=== PATIENT | female | born 1965 | race Two or more races ===

== ENCOUNTER 2023-01-27 01:21 | Inpatient (IN) | payer OTHER, MEDICAID ==
[2023-01-27] VITALS (26 sets, daily range): BP systolic 104–148; BP diastolic 57–99; PULSE 91–117; RESP 18–20; TEMP 97.8; O2SAT 94–100
[~2023-01-27] VITALS: Ht 175.3 cm; Wt 180.5 kg
[2023-01-27] MEDS ORDERED: LORazepam 2MG/ML-1ML VIAL ONE ×2 (01:29→01:59)
[2023-01-27] MEDS ORDERED: LORazepam 2MG/ML-1ML VIAL IV ONE ×3 (01:45→13:45)
[2023-01-27 02:05] LABS: Basophils # (auto) 0 10 ^3/uL (0-0.2); Eosinophils # (auto) 0.2 10 ^3/uL (0-0.8); Eosinophils % (auto) 3.3 % (0.0-7.0); Hematocrit 41.4 % (36.0-46.0); Hemoglobin 13.5 g/dL (12.2-16.2); Lymphocytes # (auto) 2.1 10 ^3/uL (0.4-5.4); Lymphocytes % (auto) 44.1 % (10.0-50.0); Mean Corpuscular Hemoglobin 31.7 pg (28.0-32.0); Mean Corpuscular Hgb Conc. 32.7 g/dL (32.0-36.0); Mean Corpuscular Volume 96.8 fL (80.0-100.0); Monocytes # (auto) 0.4 10 ^3/uL (0-1.3); Monocytes % (auto) 7.8 % (0.0-12.0); Neutrophils # (auto) 2.1 10 ^3/uL (1.6-8.6); Neutrophils % (auto) 43.8 % (37.0-80.0); Red Blood Cells 4.28 10^6/uL (4.0-5.20); Red Cell Distribution Width 14.7 % (11.8-14.3); White Blood Cell 4.8 10^3/uL (4.4-10.8)
[2023-01-27] MEDS ORDERED: SODIUM CHLORIDE 0.9% 1,000 ML IVB ONE (03:00)
[2023-01-27] MEDS ORDERED: levETIRAcetam 1000 mg/100ml 100 ML IV ONE (03:00)
[2023-01-27 03:08] LABS: Chloride 106 mmol/L (98-107); Sodium 138 mmol/L (136-145)
[2023-01-27 03:10] LABS: Potassium 4.2 mmol/L (3.5-5.1)
[2023-01-27 03:11] LABS: Anion Gap 5 (5-15); Calcium 9.1 mg/dL (8.5-10.1); Carbon Dioxide 27 mmol/L (20-30)
[2023-01-27 03:16] LABS: Glucose 103 mg/dL (74-106)
[2023-01-27 03:17] LABS: Alkaline Phosphatase 100 U/L (46-116)
[2023-01-27 03:18] LABS: Albumin 4.1 g/dL (3.2-4.8); Aspartate Aminotransferase 17 U/L (13-40); Bilirubin, Total 0.3 mg/dL (0.2-1.0); Total Protein 6.9 g/dL (5.7-8.2)
[2023-01-27 04:38] LABS: Blood Alcohol 3.8 mg/dL (<10); Magnesium 1.8 mg/dL (1.6-2.6)
[2023-01-27 04:41] LABS: INR 1.04 (0.9-1.15); Partial Thromboplastin Time 28.6 SEC (24.5-34.5); Prothrombin Time 10.9 sec (9.3-11.8)
[2023-01-27 04:59] LABS: Alanine Aminotransferase 19 U/L (7-40); BUN/Creatinine Ratio 17.7 (10.0-20.0); Blood Urea Nitrogen 14 mg/dL (9-23)
[2023-01-27] MEDS ORDERED: NITROGLYCERIN 0.4 MG SL TAB SL PRN (06:45)
[2023-01-27] MEDS ORDERED: LORazepam 2MG/ML-1ML VIAL IM PRN (06:45)
[2023-01-27 08:23] LABS: Urine Bacteria FEW /hpf (None Seen); Urine Blood Negative /uL (Negative); Urine Clarity HAZY (Clear); Urine Color Yellow (Yellow); Urine Mucus FEW (None Seen); Urine Protein, UAD TRACE (Negative); Urine Specific Gravity 1.027 (1.001-1.035); Urine Urobilinogen Normal (Negative); Urine WBC 3 /hpf (0 - 5)
[2023-01-27 09:23] LABS: Amphetamine Screen, Urine Neg (NEGATIVE); Barbiturate Scree,Urine Neg (NEGATIVE); Benzodiazephine Screen, Urine Pos (NEGATIVE); Cannabinoid Screen, Urine Neg (NEGATIVE); Cocaine Screen, Urine Neg (NEGATIVE); Opiate Scree,Urine Neg (NEGATIVE); Phencyclidine Screen, Urine Neg (NEGATIVE)
[2023-01-27] MEDS ORDERED: levETIRAcetam 500 MG TAB PO SCH (10:00)
[2023-01-27] MEDS ORDERED: ACETAMINOPHEN 325 MG TAB PO PRN (13:30)
[2023-01-27] MEDS ORDERED: hydrALAZINE HCL 20 MG/ML VL IV PRN (13:30)
[2023-01-27] MEDS ORDERED: LORazepam 2MG/ML-1ML VIAL IV PRN ×2 (13:46→14:30)
[2023-01-27] MEDS ORDERED: LISINOPRIL 20 MG TAB PO ONE (14:00)
[2023-01-27] MEDS: hydrALAZINE HCL 20 MG/ML VL IV PRN (14:21)
[2023-01-27] MEDS ORDERED: LORazepam 2MG/ML-1ML VIAL IV STA (14:38)
[2023-01-27] MEDS ORDERED: levETIRAcetam 1000 mg/100ml 100 ML IV SCH ×2 (14:45→15:15)
[2023-01-27] MEDS ORDERED: PROPOFOL 100 ML IV ONE (14:55)
[2023-01-27] MEDS ORDERED: MIDAZOLAM DRIP 50 mg/50mL 50 ML IV ONE (14:58)
[2023-01-27] MEDS ORDERED: SUCCINYLCHOLINE CHLORIDE 20 MG/ML 10ML VIAL IV ONE ×2 (14:59→15:00)
[2023-01-27] MEDS ORDERED: MIDAZOLAM HCL 5 MG/ML-1ML VIAL ONE (15:00)
[2023-01-27] MEDS ORDERED: MIDAZOLAM HCL 5 MG/ML-1ML VIAL IV ONE ×2 (15:00)
[2023-01-27] MEDS: MIDAZOLAM DRIP 50 mg/50mL 50 ML IV SCH ×2 (15:08→21:04)
[2023-01-27] MEDS: PROPOFOL 100 ML IV SCH ×3 (15:08→23:10)
[2023-01-27] MEDS ORDERED: levETIRAcetam 500 MG/5ML INJ IV ONE ×2 (15:22→22:23)
[2023-01-27] MEDS ORDERED: PHENYTOIN IV DILANTIN 1,000 MG in SODIUM CHL 0.9% 250 ML IV ONE (15:45)
[2023-01-27] MEDS: fentaNYL Drip 2500mCg/250mlNS 250 ML IV SCH (16:00)
[2023-01-27 18:12] LABS: Basophils # (auto) 0 10 ^3/uL (0-0.2); Basophils % (auto) 0.5 % (0.0-2.0); Eosinophils # (auto) 0.1 10 ^3/uL (0-0.8); Eosinophils % (auto) 1.3 % (0.0-7.0); Hematocrit 44.1 % (36.0-46.0); Hemoglobin 14.4 g/dL (12.2-16.2); Lymphocytes # (auto) 1.3 10 ^3/uL (0.4-5.4); Lymphocytes % (auto) 19.5 % (10.0-50.0); Mean Corpuscular Hemoglobin 31.8 pg (28.0-32.0); Mean Corpuscular Hgb Conc. 32.6 g/dL (32.0-36.0); Mean Corpuscular Volume 97.4 fL (80.0-100.0); Monocytes # (auto) 0.4 10 ^3/uL (0-1.3); Monocytes % (auto) 6.1 % (0.0-12.0); Neutrophils # (auto) 4.7 10 ^3/uL (1.6-8.6); Neutrophils % (auto) 72.6 % (37.0-80.0); Nucleated Red Blood Cells % 0.1 %; Red Blood Cells 4.53 10^6/uL (4.0-5.20); Red Cell Distribution Width 14.8 % (11.8-14.3); White Blood Cell 6.4 10^3/uL (4.4-10.8)
[2023-01-27 18:30] LABS: Alanine Aminotransferase 20 U/L (7-40); Albumin 4.2 g/dL (3.2-4.8); Alkaline Phosphatase 118 U/L (46-116); Anion Gap 8 (5-15); Aspartate Aminotransferase 23 U/L (13-40); BUN/Creatinine Ratio 9.5 (10.0-20.0); Bilirubin, Total 0.5 mg/dL (0.2-1.0); Blood Urea Nitrogen 7 mg/dL (9-23); Calcium 8.8 mg/dL (8.7-10.4); Carbon Dioxide 25 mmol/L (20-30); Chloride 107 mmol/L (98-107); Glucose 100 mg/dL (74-106); Potassium 4.3 mmol/L (3.5-5.1); Sodium 140 mmol/L (136-145); Total Protein 7.2 g/dL (5.7-8.2)
[2023-01-27 18:43] LABS: Base Excess -1.3 mmol/L (-2.0-2.0)
[2023-01-27] MEDS: cefTRIAXone 1GM/50ML D5W 50 ML IV SCH (21:21)
[2023-01-27] MEDS: levETIRAcetam 1500 mg/100ml 100 ML IV SCH (22:29)
[2023-01-28] VITALS (106 sets, daily range): BP systolic 81–130; BP diastolic 45–81; PULSE 73–108; RESP 14–21; TEMP 95.5–98.8; O2SAT 92–100
[2023-01-28] MEDS: MIDAZOLAM DRIP 50 mg/50mL 50 ML IV SCH ×3 (00:24→16:48)
[2023-01-28] MEDS: PROPOFOL 100 ML IV SCH ×6 (01:01→16:48)
[2023-01-28 02:27] LABS: Basophils # (auto) 0 10 ^3/uL (0-0.2); Basophils % (auto) 0.7 % (0.0-2.0); Eosinophils # (auto) 0.1 10 ^3/uL (0-0.8); Eosinophils % (auto) 2.8 % (0.0-7.0); Hematocrit 37.8 % (36.0-46.0); Hemoglobin 12.4 g/dL (12.2-16.2); Lymphocytes # (auto) 1.7 10 ^3/uL (0.4-5.4); Mean Corpuscular Hemoglobin 31.7 pg (28.0-32.0); Mean Corpuscular Hgb Conc. 32.8 g/dL (32.0-36.0); Mean Corpuscular Volume 96.6 fL (80.0-100.0); Monocytes # (auto) 0.3 10 ^3/uL (0-1.3); Monocytes % (auto) 6.6 % (0.0-12.0); Neutrophils # (auto) 2.5 10 ^3/uL (1.6-8.6); Neutrophils % (auto) 52.9 % (37.0-80.0); Nucleated Red Blood Cells % 0.1 %; Red Blood Cells 3.91 10^6/uL (4.0-5.20); Red Cell Distribution Width 14.6 % (11.8-14.3); White Blood Cell 4.7 10^3/uL (4.4-10.8)
[2023-01-28 02:38] LABS: Alanine Aminotransferase 18 U/L (7-40); Albumin 3.4 g/dL (3.2-4.8); Alkaline Phosphatase 95 U/L (46-116); Anion Gap 6 (5-15); Aspartate Aminotransferase 28 U/L (13-40); BUN/Creatinine Ratio 12.5 (10.0-20.0); Blood Urea Nitrogen 9 mg/dL (9-23); Calcium 8.3 mg/dL (8.7-10.4); Carbon Dioxide 26 mmol/L (20-30); Chloride 109 mmol/L (98-107); Glucose 92 mg/dL (74-106); Potassium 3.8 mmol/L (3.5-5.1); Sodium 141 mmol/L (136-145)
[2023-01-28 02:39] LABS: Bilirubin, Total 0.4 mg/dL (0.2-1.0); Total Protein 5.8 g/dL (5.7-8.2)
[2023-01-28] MEDS: NOREPINEPHRINE 8 MG/250ML KIT 250 ML IV SCH ×2 (03:20→16:48)
[2023-01-28] MEDS: cefTRIAXone 1GM/50ML D5W 50 ML IV SCH (08:26)
[2023-01-28] MEDS: levETIRAcetam 1500 mg/100ml 100 ML IV SCH ×2 (09:00→21:07)
[2023-01-28] MEDS ORDERED: LISINOPRIL 20 MG TAB PO SCH ×2 (10:00)
[2023-01-28] MEDS ORDERED: OPTISON 3ml Vial for INJ IV ONE (10:45)
[2023-01-28] MEDS ORDERED: PHENYTOIN IV DILANTIN 1,000 MG in SODIUM CHL 0.9% 250 ML IV ONE (13:00)
[2023-01-28] MEDS: fentaNYL Drip 2500mCg/250mlNS 250 ML IV SCH (13:53)
[2023-01-28] MEDS ORDERED: PIPERACILLIN-TAZOB 3.375GM 100 ML IV SCH (18:00)
[2023-01-28] MEDS ORDERED: METH-1182 PO (18:39)
[2023-01-28] MEDS ORDERED: PANT40TA2 PO (18:39)
[2023-01-28] MEDS ORDERED: CYCL-838 PO (18:39)
[2023-01-28] MEDS ORDERED: GABA-339 PO (18:39)
[2023-01-28] MEDS ORDERED: LISI40TA16 PO (18:39)
[2023-01-28] MEDS ORDERED: KEP500T PO (18:39)
[2023-01-28] MEDS ORDERED: TIZA4CAP PO (18:39)
[2023-01-29] VITALS (107 sets, daily range): BP systolic 76–170; BP diastolic 43–124; PULSE 74–124; RESP 17–21; TEMP 97.9–100.2; O2SAT 92–100
[2023-01-29 02:41] LABS: Alanine Aminotransferase 31 U/L (7-40); Albumin 3.3 g/dL (3.2-4.8); Alkaline Phosphatase 93 U/L (46-116); Anion Gap 6 (5-15); Aspartate Aminotransferase 101 U/L (13-40); Blood Urea Nitrogen 7 mg/dL (9-23); Calcium 8.3 mg/dL (8.7-10.4); Carbon Dioxide 25 mmol/L (20-30); Chloride 111 mmol/L (98-107); Glucose 103 mg/dL (74-106); Potassium 3.7 mmol/L (3.5-5.1); Sodium 142 mmol/L (136-145)
[2023-01-29 02:42] LABS: Bilirubin, Total 0.4 mg/dL (0.2-1.0); Total Protein 5.8 g/dL (5.7-8.2)
[2023-01-29 02:46] LABS: Basophils # (auto) 0 10 ^3/uL (0-0.2); Basophils % (auto) 0.9 % (0.0-2.0); Eosinophils # (auto) 0.1 10 ^3/uL (0-0.8); Eosinophils % (auto) 3.4 % (0.0-7.0); Hemoglobin 12.6 g/dL (12.2-16.2); Lymphocytes # (auto) 1.3 10 ^3/uL (0.4-5.4); Lymphocytes % (auto) 29.9 % (10.0-50.0); Mean Corpuscular Hemoglobin 31.8 pg (28.0-32.0); Mean Corpuscular Volume 96.2 fL (80.0-100.0); Monocytes # (auto) 0.5 10 ^3/uL (0-1.3); Monocytes % (auto) 10.8 % (0.0-12.0); Neutrophils # (auto) 2.4 10 ^3/uL (1.6-8.6); Nucleated Red Blood Cells % 0.2 %; Red Blood Cells 3.95 10^6/uL (4.0-5.20); Red Cell Distribution Width 14.7 % (11.8-14.3); White Blood Cell 4.4 10^3/uL (4.4-10.8)
[2023-01-29 08:06] LABS: Base Excess -3.4 mmol/L (-2.0-2.0)
[2023-01-29] MEDS: cefTRIAXone 1GM/50ML D5W 50 ML IV SCH (08:17)
[2023-01-29] MEDS: NOREPINEPHRINE 8 MG/250ML KIT 250 ML IV SCH (09:23)
[2023-01-29] MEDS: levETIRAcetam 1500 mg/100ml 100 ML IV SCH ×2 (09:24→21:12)
[2023-01-29] MEDS: PHENYTOIN SODIUM 50 MG/ML 2ML VIAL IV SCH ×3 (10:15→21:12)
[2023-01-29] MEDS: MIDAZOLAM DRIP 50 mg/50mL 50 ML IV SCH ×2 (11:05→16:28)
[2023-01-29] MEDS: ENOXAPARIN SOD 40 MG/0.4 ML SYRINGE SC SCH (11:49)
[2023-01-29] MEDS: fentaNYL Drip 2500mCg/250mlNS 250 ML IV SCH (16:00)
[2023-01-29] MEDS: PROPOFOL 100 ML IV SCH ×2 (16:28→17:54)
[2023-01-30] VITALS (106 sets, daily range): BP systolic 89–155; BP diastolic 46–90; PULSE 71–109; RESP 14–18; TEMP 97.7–100.6; O2SAT 93–100
[2023-01-30 02:22] LABS: Basophils # (auto) 0 10 ^3/uL (0-0.2); Basophils % (auto) 0.4 % (0.0-2.0); Eosinophils # (auto) 0.2 10 ^3/uL (0-0.8); Eosinophils % (auto) 2.9 % (0.0-7.0); Hematocrit 37.3 % (36.0-46.0); Hemoglobin 12.3 g/dL (12.2-16.2); Lymphocytes # (auto) 1.4 10 ^3/uL (0.4-5.4); Lymphocytes % (auto) 25.2 % (10.0-50.0); Mean Corpuscular Hemoglobin 31.4 pg (28.0-32.0); Mean Corpuscular Volume 95.1 fL (80.0-100.0); Monocytes # (auto) 0.5 10 ^3/uL (0-1.3); Monocytes % (auto) 9.1 % (0.0-12.0); Neutrophils # (auto) 3.6 10 ^3/uL (1.6-8.6); Neutrophils % (auto) 62.4 % (37.0-80.0); Red Blood Cells 3.92 10^6/uL (4.0-5.20); Red Cell Distribution Width 14.8 % (11.8-14.3); White Blood Cell 5.7 10^3/uL (4.4-10.8)
[2023-01-30 02:41] LABS: Alanine Aminotransferase 25 U/L (7-40); Albumin 3.2 g/dL (3.2-4.8); Alkaline Phosphatase 87 U/L (46-116); Anion Gap 6 (5-15); Aspartate Aminotransferase 71 U/L (13-40); BUN/Creatinine Ratio 10.3 (10.0-20.0); Bilirubin, Total 0.4 mg/dL (0.2-1.0); Blood Urea Nitrogen 7 mg/dL (9-23); Calcium 8.1 mg/dL (8.7-10.4); Carbon Dioxide 25 mmol/L (20-30); Chloride 111 mmol/L (98-107); Glucose 89 mg/dL (74-106); Potassium 3.8 mmol/L (3.5-5.1); Sodium 142 mmol/L (136-145); Total Protein 5.6 g/dL (5.7-8.2)
[2023-01-30] MEDS: PHENYTOIN SODIUM 50 MG/ML 2ML VIAL IV SCH ×3 (06:00→21:13)
[2023-01-30 06:45] LABS: Base Excess -2.1 mmol/L (-2.0-2.0)
[2023-01-30] MEDS: cefTRIAXone 1GM/50ML D5W 50 ML IV SCH (08:33)
[2023-01-30] MEDS: MIDAZOLAM DRIP 50 mg/50mL 50 ML IV SCH (08:33)
[2023-01-30] MEDS: levETIRAcetam 1500 mg/100ml 100 ML IV SCH ×2 (09:16→09:18)
[2023-01-30] MEDS: ENOXAPARIN SOD 40 MG/0.4 ML SYRINGE SC SCH ×2 (09:16→09:18)
[2023-01-30] MEDS: fentaNYL Drip 2500mCg/250mlNS 250 ML IV SCH (16:00)
[2023-01-30] MEDS ORDERED: Jevity 1.2 Cal/Fiber 1 Liter GT SCH (16:15)
[2023-01-30] MEDS: PROPOFOL 100 ML IV SCH (22:14)
[2023-01-31] VITALS (106 sets, daily range): BP systolic 87–158; BP diastolic 47–98; PULSE 63–106; RESP 11–31; TEMP 98.1–100.4; O2SAT 92–100
[2023-01-31 02:00] LABS: Basophils # (auto) 0 10 ^3/uL (0-0.2); Basophils % (auto) 0.3 % (0.0-2.0); Eosinophils # (auto) 0.1 10 ^3/uL (0-0.8); Eosinophils % (auto) 2.4 % (0.0-7.0); Hematocrit 38.3 % (36.0-46.0); Hemoglobin 12.6 g/dL (12.2-16.2); Lymphocytes # (auto) 1.3 10 ^3/uL (0.4-5.4); Lymphocytes % (auto) 20.7 % (10.0-50.0); Mean Corpuscular Hemoglobin 31.8 pg (28.0-32.0); Mean Corpuscular Hgb Conc. 32.9 g/dL (32.0-36.0); Mean Corpuscular Volume 96.6 fL (80.0-100.0); Monocytes # (auto) 0.6 10 ^3/uL (0-1.3); Neutrophils # (auto) 4.2 10 ^3/uL (1.6-8.6); Neutrophils % (auto) 67.6 % (37.0-80.0); Red Blood Cells 3.97 10^6/uL (4.0-5.20); Red Cell Distribution Width 14.8 % (11.8-14.3); White Blood Cell 6.2 10^3/uL (4.4-10.8)
[2023-01-31] MEDS: NOREPINEPHRINE 8 MG/250ML KIT 250 ML IV SCH (02:08)
[2023-01-31 02:20] LABS: Alanine Aminotransferase 24 U/L (7-40); Albumin 3.3 g/dL (3.2-4.8); Alkaline Phosphatase 86 U/L (46-116); Anion Gap 5 (5-15); Aspartate Aminotransferase 68 U/L (13-40); BUN/Creatinine Ratio 14.5 (10.0-20.0); Bilirubin, Total 0.5 mg/dL (0.2-1.0); Blood Urea Nitrogen 9 mg/dL (9-23); Calcium 8.3 mg/dL (8.7-10.4); Carbon Dioxide 26 mmol/L (20-30); Chloride 111 mmol/L (98-107); Glucose 93 mg/dL (74-106); Magnesium 1.8 mg/dL (1.6-2.6); Sodium 142 mmol/L (136-145); Total Protein 5.9 g/dL (5.7-8.2)
[2023-01-31] MEDS: PHENYTOIN SODIUM 50 MG/ML 2ML VIAL IV SCH ×3 (06:23→21:30)
[2023-01-31 08:23] LABS: Base Excess -2.8 mmol/L (-2.0-2.0)
[2023-01-31] MEDS: cefTRIAXone 1GM/50ML D5W 50 ML IV SCH (09:42)
[2023-01-31] MEDS: levETIRAcetam 1500 mg/100ml 100 ML IV SCH ×2 (10:36→21:30)
[2023-01-31] MEDS: ENOXAPARIN SOD 40 MG/0.4 ML SYRINGE SC SCH (10:36)
[2023-01-31] MEDS: MIDAZOLAM DRIP 50 mg/50mL 50 ML IV SCH (15:00)
[2023-01-31 15:12] LABS: Base Excess -3.5 mmol/L (-2.0-2.0)
[2023-01-31] MEDS: fentaNYL Drip 2500mCg/250mlNS 250 ML IV SCH (16:00)
[2023-01-31] MEDS: PROPOFOL 100 ML IV SCH (23:10)
[2023-02-01] VITALS (63 sets, daily range): BP systolic 97–172; BP diastolic 60–94; PULSE 59–122; RESP 12–30; TEMP 97–99.1; O2SAT 85–99
[2023-02-01] MEDS: NOREPINEPHRINE 8 MG/250ML KIT 250 ML IV SCH ×2 (01:54→22:28)
[2023-02-01 02:48] LABS: Basophils # (auto) 0 10 ^3/uL (0-0.2); Basophils % (auto) 0.4 % (0.0-2.0); Eosinophils # (auto) 0.1 10 ^3/uL (0-0.8); Eosinophils % (auto) 2.3 % (0.0-7.0); Hematocrit 37.9 % (36.0-46.0); Hemoglobin 12.5 g/dL (12.2-16.2); Lymphocytes # (auto) 1.1 10 ^3/uL (0.4-5.4); Lymphocytes % (auto) 18.6 % (10.0-50.0); Mean Corpuscular Hemoglobin 31.9 pg (28.0-32.0); Mean Corpuscular Hgb Conc. 33.1 g/dL (32.0-36.0); Mean Corpuscular Volume 96.3 fL (80.0-100.0); Monocytes # (auto) 0.6 10 ^3/uL (0-1.3); Monocytes % (auto) 9.4 % (0.0-12.0); Neutrophils # (auto) 4.1 10 ^3/uL (1.6-8.6); Neutrophils % (auto) 69.3 % (37.0-80.0); Red Blood Cells 3.93 10^6/uL (4.0-5.20); Red Cell Distribution Width 14.3 % (11.8-14.3); White Blood Cell 5.9 10^3/uL (4.4-10.8)
[2023-02-01 03:00] LABS: Chloride 110 mmol/L (98-107); Potassium 4.2 mmol/L (3.5-5.1); Sodium 140 mmol/L (136-145)
[2023-02-01 03:01] LABS: Anion Gap 5 (5-15); Calcium 8.5 mg/dL (8.7-10.4); Carbon Dioxide 25 mmol/L (20-30)
[2023-02-01 03:06] LABS: BUN/Creatinine Ratio 17.5 (10.0-20.0); Blood Urea Nitrogen 10 mg/dL (9-23); Glucose 112 mg/dL (74-106)
[2023-02-01 03:08] LABS: Albumin 3.6 g/dL (3.2-4.8)
[2023-02-01] MEDS: PHENYTOIN SODIUM 50 MG/ML 2ML VIAL IV SCH ×3 (05:24→21:26)
[2023-02-01 07:51] LABS: Base Excess -2.2 mmol/L (-2.0-2.0)
[2023-02-01] MEDS: cefTRIAXone 1GM/50ML D5W 50 ML IV SCH (08:50)
[2023-02-01 09:31] LABS: Base Excess -1.8 mmol/L (-2.0-2.0)
[2023-02-01] MEDS ORDERED: EPINEPHrine HCL 0.5 ML NEB ONE (10:15)
[2023-02-01] MEDS: levETIRAcetam 1500 mg/100ml 100 ML IV SCH ×2 (10:29→21:26)
[2023-02-01] MEDS: ENOXAPARIN SOD 40 MG/0.4 ML SYRINGE SC SCH (10:29)
[2023-02-01] MEDS ORDERED: EPINEPHrine HCL 0.5 ML NEB NEB ONE (10:30)
[2023-02-01] MEDS: methylPREDNISolone SOD SUCC 125 MG/2 ML VL IV SCH ×2 (11:41→20:21)
[2023-02-01] MEDS: KETOROLAC TROMETH 30 MG/ML 1ML VIAL IV PRN ×3 (12:09→22:37)
[2023-02-01] MEDS: MIDAZOLAM DRIP 50 mg/50mL 50 ML IV SCH (15:00)
[2023-02-01] MEDS: fentaNYL Drip 2500mCg/250mlNS 250 ML IV SCH (16:00)
[2023-02-01] MEDS: ALBUTEROL MEDNEB 2.5 mg/3ml NEB NEB SCH ×2 (18:36→22:32)
[2023-02-01] MEDS: IPRATROPIUM BROM 0.5 MG/2.5ML INH SOL NEB SCH ×2 (18:36→22:32)
[2023-02-01] MEDS: PROPOFOL 100 ML IV SCH (20:00)
[2023-02-02] VITALS (47 sets, daily range): BP systolic 135–204; BP diastolic 68–105; PULSE 95–171; RESP 15–29; TEMP 98.1–98.6; O2SAT 85–99
[2023-02-02] MEDS: IPRATROPIUM BROM 0.5 MG/2.5ML INH SOL NEB SCH ×6 (02:32→22:05)
[2023-02-02] MEDS: ALBUTEROL MEDNEB 2.5 mg/3ml NEB NEB SCH ×6 (02:32→22:05)
[2023-02-02] MEDS: KETOROLAC TROMETH 30 MG/ML 1ML VIAL IV PRN ×3 (02:37→10:25)
[2023-02-02] MEDS: methylPREDNISolone SOD SUCC 125 MG/2 ML VL IV SCH (03:14)
[2023-02-02 04:05] LABS: Basophils # (auto) 0 10 ^3/uL (0-0.2); Basophils % (auto) 0.3 % (0.0-2.0); Eosinophils # (auto) 0 10 ^3/uL (0-0.8); Hematocrit 39.2 % (36.0-46.0); Lymphocytes # (auto) 0.7 10 ^3/uL (0.4-5.4); Mean Corpuscular Hemoglobin 31.9 pg (28.0-32.0); Mean Corpuscular Hgb Conc. 33.2 g/dL (32.0-36.0); Monocytes # (auto) 0.2 10 ^3/uL (0-1.3); Monocytes % (auto) 3.3 % (0.0-12.0); Neutrophils # (auto) 5.7 10 ^3/uL (1.6-8.6); Neutrophils % (auto) 85.4 % (37.0-80.0); Red Blood Cells 4.09 10^6/uL (4.0-5.20); Red Cell Distribution Width 14.3 % (11.8-14.3); White Blood Cell 6.7 10^3/uL (4.4-10.8)
[2023-02-02 04:39] LABS: Anion Gap 10 (5-15); Carbon Dioxide 24 mmol/L (20-30); Chloride 108 mmol/L (98-107); Potassium 4.1 mmol/L (3.5-5.1); Sodium 142 mmol/L (136-145)
[2023-02-02 04:44] LABS: Glucose 130 mg/dL (74-106)
[2023-02-02 04:45] LABS: Blood Urea Nitrogen 13 mg/dL (9-23)
[2023-02-02 05:02] LABS: BUN/Creatinine Ratio 18.3 (10.0-20.0)
[2023-02-02] MEDS: PHENYTOIN SODIUM 50 MG/ML 2ML VIAL IV SCH (05:07)
[2023-02-02] MEDS: hydrALAZINE HCL 20 MG/ML VL IV PRN ×2 (05:07→09:35)
[2023-02-02] MEDS: fentaNYL Drip 2500mCg/250mlNS 250 ML IV SCH (07:16)
[2023-02-02] MEDS: PROPOFOL 100 ML IV SCH (07:16)
[2023-02-02] MEDS: MIDAZOLAM DRIP 50 mg/50mL 50 ML IV SCH (07:16)
[2023-02-02] MEDS: NOREPINEPHRINE 8 MG/250ML KIT 250 ML IV SCH (07:17)
[2023-02-02] MEDS: cefTRIAXone 1GM/50ML D5W 50 ML IV SCH (08:00)
[2023-02-02] MEDS: ENOXAPARIN SOD 40 MG/0.4 ML SYRINGE SC SCH (08:00)
[2023-02-02] MEDS: levETIRAcetam 1500 mg/100ml 100 ML IV SCH (08:00)
[2023-02-02] MEDS: HYDROcodone-ACET 10/325MG TAB PO PRN ×2 (13:27→21:35)
[2023-02-02] MEDS: PHENYTOIN SODIUM 100 MG CAP PO SCH ×2 (13:30→21:34)
[2023-02-02] MEDS ORDERED: methylPREDNISolone SOD SUCC 125 MG/2 ML VL IV SCH (14:00)
[2023-02-02] MEDS ORDERED: hydrALAZINE HCL 20 MG/ML VL IV PRN (19:15)
[2023-02-02] MEDS: AMIODARONE HCL 200 MG TAB PO SCH (21:34)
[2023-02-02] MEDS: levETIRAcetam 500 MG TAB PO SCH (21:34)
[2023-02-02] MEDS: METOPROLOL TARTRATE 25 MG TAB PO SCH (21:35)
[2023-02-02] MEDS ORDERED: ZOLPIDEM TARTRATE 5 MG TAB PO SCH (22:00)
[2023-02-03] VITALS (10 sets, daily range): BP systolic 134–155; BP diastolic 86–94; PULSE 90–107; RESP 16–22; TEMP 98.1–98.9; O2SAT 92–99
[2023-02-03] MEDS: IPRATROPIUM BROM 0.5 MG/2.5ML INH SOL NEB SCH ×3 (02:25→10:35)
[2023-02-03] MEDS: ALBUTEROL MEDNEB 2.5 mg/3ml NEB NEB SCH ×3 (02:25→10:35)
[2023-02-03] MEDS: PHENYTOIN SODIUM 100 MG CAP PO SCH ×2 (06:41→14:00)
[2023-02-03 07:01] LABS: Basophils # (auto) 0 10 ^3/uL (0-0.2); Basophils % (auto) 0.7 % (0.0-2.0); Eosinophils # (auto) 0.1 10 ^3/uL (0-0.8); Eosinophils % (auto) 2.1 % (0.0-7.0); Hematocrit 38.2 % (36.0-46.0); Hemoglobin 12.5 g/dL (12.2-16.2); Lymphocytes # (auto) 1.5 10 ^3/uL (0.4-5.4); Mean Corpuscular Hgb Conc. 32.7 g/dL (32.0-36.0); Mean Corpuscular Volume 97.7 fL (80.0-100.0); Monocytes # (auto) 0.7 10 ^3/uL (0-1.3); Monocytes % (auto) 10.5 % (0.0-12.0); Neutrophils # (auto) 4.3 10 ^3/uL (1.6-8.6); Neutrophils % (auto) 63.7 % (37.0-80.0); Red Blood Cells 3.91 10^6/uL (4.0-5.20); Red Cell Distribution Width 14.3 % (11.8-14.3); White Blood Cell 6.7 10^3/uL (4.4-10.8)
[2023-02-03 07:15] LABS: Anion Gap 5 (5-15); Carbon Dioxide 27 mmol/L (20-30); Chloride 109 mmol/L (98-107); Potassium 3.9 mmol/L (3.5-5.1); Sodium 141 mmol/L (136-145)
[2023-02-03 07:16] LABS: Calcium 8.7 mg/dL (8.7-10.4)
[2023-02-03 07:21] LABS: BUN/Creatinine Ratio 18.6 (10.0-20.0); Blood Urea Nitrogen 13 mg/dL (9-23); Glucose 107 mg/dL (74-106)
[2023-02-03] MEDS: cefTRIAXone 1GM/50ML D5W 50 ML IV SCH (09:44)
[2023-02-03] MEDS: METOPROLOL TARTRATE 25 MG TAB PO SCH (09:45)
[2023-02-03] MEDS: AMIODARONE HCL 200 MG TAB PO SCH (09:45)
[2023-02-03] MEDS: ENOXAPARIN SOD 40 MG/0.4 ML SYRINGE SC SCH (09:47)
[2023-02-03] MEDS: levETIRAcetam 500 MG TAB PO SCH (09:54)
[2023-02-03] MEDS: KETOROLAC TROMETH 30 MG/ML 1ML VIAL IV PRN (13:28)
== END 2023-02-03 17:00 | DRG 207 ==
LOC: ER 01:21 → EDBD 01:21 → TELE 07:00 → INTOOBSV 11:32 → OBSVTOIN 11:32 → ICU WEST 01-28 01:33 → OBSVTOIN 01-29 11:32 → TELE-EAST 02-02 23:24
PROVIDERS: ADMIT Student in an Organized Health Care Education/Training Program; ATTEND Student in an Organized Health Care Education/Training Program
PROC: 5A1955Z Respiratory Ventilation, Greater than 96 Consecutive Hours (ICD-10-PCS; principal; 2023-01-27)
PROC: 0BH17EZ Insertion of Endotracheal Airway into Trachea, Via Natural or Artificial Opening (ICD-10-PCS; 2023-01-27)
PROC: 4A10X4Z Monitoring of Central Nervous Electrical Activity, External Approach (ICD-10-PCS; 2023-01-27)
PROC: 4A10X4Z Monitoring of Central Nervous Electrical Activity, External Approach (ICD-10-PCS; 2023-01-28)
PROC: 02HV33Z Insertion of Infusion Device into Superior Vena Cava, Percutaneous Approach (ICD-10-PCS; 2023-01-28)
PROC: B548ZZA Ultrasonography of Superior Vena Cava, Guidance (ICD-10-PCS; 2023-01-28)
PROC: 05HA33Z Insertion of Infusion Device into Left Brachial Vein, Percutaneous Approach (ICD-10-PCS; 2023-02-02)
PROC: B54NZZA Ultrasonography of Left Upper Extremity Veins, Guidance (ICD-10-PCS; 2023-02-02)
DX: J96.01 Acute respiratory failure with hypoxia (principal); J81.1 Chronic pulmonary edema; F11.20 Opioid dependence, uncomplicated; J98.11 Atelectasis; N39.0 Urinary tract infection, site not specified; Z68.43 Body mass index [BMI] 50.0-59.9, adult; G40.901 Epilepsy, unspecified, not intractable, with status epilepticus; E66.01 Morbid (severe) obesity due to excess calories; I10 Essential (primary) hypertension; Z86.73 Personal history of transient ischemic attack (TIA), and cerebral infarction without residual deficits; Z88.6 Allergy status to analgesic agent; Z88.2 Allergy status to sulfonamides; Z88.5 Allergy status to narcotic agent; Z88.0 Allergy status to penicillin
CPT/HCPCS: 31500; 36415; 36600; 70450; 71045; 80048; 80053; 80185; 80307; 80320; 81001; 82040; 82542; 82805; 83605; 83735; 83880; 84439; 84443; 84484; 84702; 85025; 85610; 85730; 87040; 87070; 87077; 87081; 87086; 87186; 87205; 93005; 93306; 94002; 94003; 94640; 95819; 97163; 99291; G0378; J0330; J0696; J1885; J2250; J2704; J7060; Q9956

== ENCOUNTER 2023-07-26 21:41 | Inpatient (IN) | payer OTHER, MEDICAID ==
[~2023-07-26] VITALS: Ht 175.3 cm; Wt 189.5 kg
[~2023-07-26 21:41] MED LIST: LISI40TA16 PO; PANT40TA2 PO
[2023-07-26] MEDS: ALBUTEROL SULF 2.5 MG/0.5ML(0.5%) NEB SOLN NEB ONE (22:21)
[2023-07-26] MEDS: IPRATROPIUM BROM 0.5 MG/2.5ML INH SOL NEB ONE (22:21)
[2023-07-26 22:28] LABS: Basophils # (auto) 0 10 ^3/uL (0-0.2); Basophils % (auto) 0.5 % (0.0-2.0); Eosinophils # (auto) 0.1 10 ^3/uL (0-0.8); Eosinophils % (auto) 2.7 % (0.0-7.0); Hemoglobin 13.5 g/dL (12.2-16.2); Lymphocytes # (auto) 1.4 10 ^3/uL (0.4-5.4); Lymphocytes % (auto) 31.4 % (10.0-50.0); Mean Corpuscular Hemoglobin 31.6 pg (28.0-32.0); Mean Corpuscular Volume 95.9 fL (80.0-100.0); Monocytes # (auto) 0.4 10 ^3/uL (0-1.3); Monocytes % (auto) 9.6 % (0.0-12.0); Neutrophils # (auto) 2.4 10 ^3/uL (1.6-8.6); Neutrophils % (auto) 55.8 % (37.0-80.0); Red Blood Cells 4.27 10^6/uL (4.0-5.20); White Blood Cell 4.3 10^3/uL (4.4-10.8)
[2023-07-26 22:36] VITALS: PULSE 113; RESP 22; O2SAT 95
[2023-07-26 22:45] LABS: Albumin 4.1 g/dL (3.2-4.8); Alkaline Phosphatase 116 U/L (46-116); Anion Gap 6 (5-15); Aspartate Aminotransferase 20 U/L (13-40); BUN/Creatinine Ratio 8.6 (10.0-20.0); Blood Urea Nitrogen 7 mg/dL (9-23); Calcium 9.1 mg/dL (8.5-10.1); Carbon Dioxide 27 mmol/L (20-30); Chloride 107 mmol/L (98-107); Glucose 125 mg/dL (74-106); Potassium 3.6 mmol/L (3.5-5.1); Sodium 140 mmol/L (136-145)
[2023-07-26 22:46] LABS: Bilirubin, Total 0.3 mg/dL (0.2-1.0); Total Protein 7.4 g/dL (5.7-8.2)
[2023-07-26 22:47] LABS: Alanine Aminotransferase < 9 U/L (7-40)
[2023-07-26] MEDS: DexAMETHasone SOD PHOS 10MG/1ML VIAL INJ IV ONE (23:39)
[2023-07-26] MEDS: HYDROmorphone HCL 2 MG/ML VL/or syr IV ONE (23:40)
[2023-07-26] MEDS: levoFLOXacin 750MG 150 ML IV ONE (23:44)
[2023-07-27] VITALS (11 sets, daily range): BP systolic 124–158; BP diastolic 88–98; PULSE 66–118; RESP 17–22; TEMP 97.8–100; O2SAT 90–97
[2023-07-27 00:03] LABS: Lactic Acid w/Reflex 2.3 mmol/L (0.4-2.0)
[2023-07-27 00:12] LABS: COVID19 ANTIGEN SOFIA FIA NEGATIVE (NEGATIVE); Rapid Influenza A Negative (Negative); Rapid Influenza B Negative (Negative)
[2023-07-27] MEDS ORDERED: LEVO500T91 PO (01:14)
[2023-07-27] MEDS ORDERED: FURO40TA4 PO (01:14)
[2023-07-27] MEDS ORDERED: BENZ200C64 PO (01:14)
[2023-07-27] MEDS ORDERED: POTA1TAB4 PO (01:14)
[2023-07-27] MEDS: FUROSEMIDE 100 MG/10ML VIAL IV ONE (01:45)
[2023-07-27] MEDS: HYDROmorphone HCL 2 MG/ML VL/or syr IV ONE (03:49)
[2023-07-27] MEDS ORDERED: ONDANSETRON HCL 4 MG/2 ML VIAL IV PRN (04:30)
[2023-07-27] MEDS ORDERED: ACETAMINOPHEN 325 MG TAB PO PRN (04:30)
[2023-07-27] MEDS ORDERED: DOCUSATE SOD 100 MG CAP PO PRN (04:30)
[2023-07-27] MEDS: SODIUM CHLOR 0.9% PF (SALINE LOCK) 10ML VIAL/SYR IV SCH (06:05)
[2023-07-27] MEDS ORDERED: MORPHINE SULFATE INJ 2 MG/ml SYRG IV PRN (06:15)
[2023-07-27] MEDS ORDERED: NITROGLYCERIN 0.4 MG SL TAB SL PRN (06:15)
[2023-07-27 06:20] LABS: Basophils # (auto) 0 10 ^3/uL (0-0.2); Basophils % (auto) 0.4 % (0.0-2.0); Eosinophils # (auto) 0 10 ^3/uL (0-0.8); Eosinophils % (auto) 0.1 % (0.0-7.0); Hematocrit 40.7 % (36.0-46.0); Lymphocytes # (auto) 0.6 10 ^3/uL (0.4-5.4); Mean Corpuscular Hemoglobin 33.3 pg (28.0-32.0); Mean Corpuscular Hgb Conc. 34.5 g/dL (32.0-36.0); Mean Corpuscular Volume 96.6 fL (80.0-100.0); Monocytes # (auto) 0.1 10 ^3/uL (0-1.3); Monocytes % (auto) 2.2 % (0.0-12.0); Neutrophils # (auto) 3.3 10 ^3/uL (1.6-8.6); Neutrophils % (auto) 81.3 % (37.0-80.0); Nucleated Red Blood Cells % 0.1 %; Red Blood Cells 4.21 10^6/uL (4.0-5.20); Red Cell Distribution Width 14.6 % (11.8-14.3); White Blood Cell 4.1 10^3/uL (4.4-10.8)
[2023-07-27 06:35] LABS: Alanine Aminotransferase 14 U/L (7-40); Alkaline Phosphatase 119 U/L (46-116); Calcium 9.4 mg/dL (8.7-10.4); Carbon Dioxide 26 mmol/L (20-30); Chloride 103 mmol/L (98-107)
[2023-07-27 06:36] LABS: Albumin 4.4 g/dL (3.2-4.8); Anion Gap 8 (5-15); Aspartate Aminotransferase 14 U/L (13-40); BUN/Creatinine Ratio 9.7 (10.0-20.0); Bilirubin, Total 0.3 mg/dL (0.2-1.0); Blood Urea Nitrogen 9 mg/dL (9-23); Glucose 185 mg/dL (74-106); Potassium 4.1 mmol/L (3.5-5.1); Sodium 137 mmol/L (136-145)
[2023-07-27] MEDS: IPRATROPIUM BROM 0.5 MG/2.5ML INH SOL NEB PRN (06:46)
[2023-07-27] MEDS: ALBUTEROL SULF 2.5 MG/0.5ML(0.5%) NEB SOLN NEB PRN (06:46)
[2023-07-27] MEDS: HYDROmorphone HCL 2 MG/ML VL/or syr IV PRN (07:24)
[2023-07-27] MEDS: levETIRAcetam 1000 mg/100ml 100 ML IV SCH (09:49)
[2023-07-27] MEDS: DexAMETHasone SOD PHOS 10MG/1ML VIAL INJ IV SCH (10:12)
[2023-07-27] MEDS: levoFLOXacin 500MG 100 ML IV SCH (10:12)
[2023-07-27] MEDS: FUROSEMIDE 40 MG/4 ML VIAL IV SCH (10:12)
[2023-07-27] MEDS: FAMOTIDINE (10MG/ML) 2ML VL IV SCH (10:13)
[2023-07-27] MEDS: HYDROcodone-ACET 5/325MG TAB PO PRN (16:30)
[2023-07-28] VITALS (20 sets, daily range): BP systolic 123–150; BP diastolic 78–111; PULSE 87–113; RESP 18–24; TEMP 97.3–98.6; O2SAT 93–99
[2023-07-28] MEDS: ALBUTEROL SULF 2.5 MG/0.5ML(0.5%) NEB SOLN ONE (05:44)
[2023-07-28] MEDS: IPRATROPIUM BROM 0.5 MG/2.5ML INH SOL ONE (05:44)
[2023-07-28 06:15] LABS: Basophils # (auto) 0 10 ^3/uL (0-0.2); Basophils % (auto) 0.1 % (0.0-2.0); Eosinophils # (auto) 0 10 ^3/uL (0-0.8); Hematocrit 37.3 % (36.0-46.0); Hemoglobin 12.5 g/dL (12.2-16.2); Lymphocytes # (auto) 1.2 10 ^3/uL (0.4-5.4); Lymphocytes % (auto) 26.1 % (10.0-50.0); Mean Corpuscular Hemoglobin 33.2 pg (28.0-32.0); Mean Corpuscular Hgb Conc. 33.6 g/dL (32.0-36.0); Mean Corpuscular Volume 98.9 fL (80.0-100.0); Monocytes # (auto) 0.5 10 ^3/uL (0-1.3); Monocytes % (auto) 11.2 % (0.0-12.0); Neutrophils # (auto) 2.9 10 ^3/uL (1.6-8.6); Neutrophils % (auto) 62.6 % (37.0-80.0); Nucleated Red Blood Cells % 0.2 %; Red Blood Cells 3.77 10^6/uL (4.0-5.20); White Blood Cell 4.6 10^3/uL (4.4-10.8)
[2023-07-28] MEDS: IPRATROPIUM BROM 0.5 MG/2.5ML INH SOL NEB SCH (06:28)
[2023-07-28] MEDS: ALBUTEROL SULF 2.5 MG/0.5ML(0.5%) NEB SOLN NEB SCH (06:28)
[2023-07-28 06:37] LABS: Albumin 3.9 g/dL (3.2-4.8); Alkaline Phosphatase 96 U/L (46-116); Calcium 9.1 mg/dL (8.5-10.1); Carbon Dioxide 27 mmol/L (20-30); Chloride 104 mmol/L (98-107); Glucose 155 mg/dL (74-106); Potassium 4.3 mmol/L (3.5-5.1)
[2023-07-28 06:38] LABS: Alanine Aminotransferase < 9 U/L (7-40); Anion Gap 6 (5-15); Aspartate Aminotransferase 18 U/L (13-40); BUN/Creatinine Ratio 12.1 (10.0-20.0); Bilirubin, Total 0.2 mg/dL (0.2-1.0); Blood Urea Nitrogen 11 mg/dL (9-23); Sodium 137 mmol/L (136-145)
[2023-07-28] MEDS: guaiFENesin-CODEINE Liq 5 ML UD PO PRN (16:38)
[2023-07-29] VITALS (17 sets, daily range): BP systolic 104–151; BP diastolic 66–102; PULSE 84–113; RESP 16–24; TEMP 97.4–98.4; O2SAT 94–100
[2023-07-29] MEDS: cefTRIAXone 2GM/50ML D5W 50 ML IV SCH (11:35)
[2023-07-29] MEDS: AZITHROMYCIN 500MG/ 250ML 250 ML IV SCH (12:09)
[2023-07-29] MEDS: hydrALAZINE HCL 20 MG/ML VL IV PRN (13:57)
[2023-07-30] VITALS (22 sets, daily range): BP systolic 125–156; BP diastolic 69–98; PULSE 91–108; RESP 14–22; TEMP 97.4–98.1; O2SAT 92–100
[2023-07-30] MEDS ORDERED: LEVE100020 PO (11:54)
[2023-07-30] MEDS ORDERED: HYDR-4795 PO (11:54)
[2023-07-30] MEDS ORDERED: METH-1182 PO (11:54)
[2023-07-30] MEDS ORDERED: IBUP-1456 PO (11:54)
[2023-07-30] MEDS ORDERED: GABA-1250 PO (11:54)
[2023-07-30] MEDS ORDERED: AMIT50TA12 PO (11:54)
[2023-07-31] VITALS (22 sets, daily range): BP systolic 136–143; BP diastolic 80–96; PULSE 85–103; RESP 17–22; TEMP 97.5–98.9; O2SAT 92–100
[2023-07-31] MEDS ORDERED: HYDROcodone-ACET 7.5/325MG TAB PO PRN (12:15)
[2023-07-31] MEDS ORDERED: HYDROmorphone HCL 2 MG/ML VL/or syr IV PRN (14:45)
[2023-07-31] MEDS: HYDROcodone-ACET 7.5/325MG TAB PO PRN (16:18)
[2023-08-01] VITALS (11 sets, daily range): BP systolic 134–153; BP diastolic 74–92; PULSE 85–104; RESP 16–20; TEMP 97.5–98.3; O2SAT 94–100
[2023-08-01 07:23] LABS: Basophils # (auto) 0 10 ^3/uL (0-0.2); Basophils % (auto) 0.4 % (0.0-2.0); Eosinophils # (auto) 0 10 ^3/uL (0-0.8); Eosinophils % (auto) 0.1 % (0.0-7.0); Hematocrit 38.1 % (36.0-46.0); Hemoglobin 12.9 g/dL (12.2-16.2); Lymphocytes # (auto) 1.4 10 ^3/uL (0.4-5.4); Lymphocytes % (auto) 19.4 % (10.0-50.0); Mean Corpuscular Hemoglobin 32.7 pg (28.0-32.0); Mean Corpuscular Hgb Conc. 33.9 g/dL (32.0-36.0); Mean Corpuscular Volume 96.5 fL (80.0-100.0); Monocytes # (auto) 0.7 10 ^3/uL (0-1.3); Monocytes % (auto) 9.6 % (0.0-12.0); Neutrophils # (auto) 5.2 10 ^3/uL (1.6-8.6); Neutrophils % (auto) 70.5 % (37.0-80.0); Nucleated Red Blood Cells % 0.1 %; Red Blood Cells 3.94 10^6/uL (4.0-5.20); Red Cell Distribution Width 14.7 % (11.8-14.3); White Blood Cell 7.3 10^3/uL (4.4-10.8)
[2023-08-01 07:28] LABS: Anion Gap 4 (5-15); Carbon Dioxide 31 mmol/L (20-30); Chloride 102 mmol/L (98-107); Potassium 4.8 mmol/L (3.5-5.1); Sodium 137 mmol/L (136-145)
[2023-08-01 07:29] LABS: Calcium 9.1 mg/dL (8.5-10.1)
[2023-08-01 07:34] LABS: BUN/Creatinine Ratio 17.8 (10.0-20.0); Blood Urea Nitrogen 13 mg/dL (9-23); Glucose 123 mg/dL (74-106)
[2023-08-01] MEDS ORDERED: AMOX500T86 PO (11:14)
[2023-08-01] MEDS ORDERED: PRED20TA2 PO (11:14)
[2023-08-01] MEDS ORDERED: BENZ100C97 PO (11:14)
== END 2023-08-01 14:27 | disposition home or self-care (01) | DRG 177 ==
LOC: EDSEX 21:41 → ER 21:41 → EDBD 21:41 → TELE 07-27 06:17 → TELE-E-ADS 07-27 10:30 → TELE-WESTW 07-27 13:32
PROVIDERS: ADMIT Nurse Practitioner Family; ATTEND Internal Medicine Pulmonary Disease
DX: J15.69 Pneumonia due to other Gram-negative bacteria (principal); J96.01 Acute respiratory failure with hypoxia; E87.20 Acidosis, unspecified; Z68.44 Body mass index [BMI] 60.0-69.9, adult; J45.901 Unspecified asthma with (acute) exacerbation; J15.9 Unspecified bacterial pneumonia; Z20.822 Contact with and (suspected) exposure to COVID-19; I50.9 Heart failure, unspecified; I11.0 Hypertensive heart disease with heart failure; E66.01 Morbid (severe) obesity due to excess calories; Z86.73 Personal history of transient ischemic attack (TIA), and cerebral infarction without residual deficits; Z88.0 Allergy status to penicillin; Z88.6 Allergy status to analgesic agent; Z88.5 Allergy status to narcotic agent
CPT/HCPCS: 36415; 71045; 80048; 80053; 83605; 83880; 84484; 85025; 87040; 87070; 87205; 87426; 87804; 93005; 94640; 96365; 96375; G0378; J1100; J1956; J3490